=== PATIENT | female | born 1940 | race Caucasian/White ===

== ENCOUNTER → 2018-03-14 | Emergency (ER) | payer OTHER ==
[~2018-03-14] VITALS: Ht 149.9 cm; Wt 59.0 kg
[~2018-03-14] MED LIST: ACID REDUCER150 MG; ASPIR 8181 MG; GLUCOTROL10 MG; ISOSORBIDE DINI30 MG; LIPITOR80 MG; METFORMIN HCL850 MG; PAIN RELIEVER500 M4; PLAVIX75 MG; RESTORIL30 M1; TOPAMAX50 MG; VITAMIN C1000 MG; VITAMIN D250000 UNIT; ZOLOFT100 MG
== END | disposition home or self-care (01) ==
LOC: ER 16:42 → CPU-OBS 16:59
DX: I25.10 Atherosclerotic heart disease of native coronary artery without angina pectoris (principal)

== ENCOUNTER 2018-09-22 17:43 | Inpatient (IN) | payer OTHER ==
[~2018-09-22] VITALS: Ht 160 cm; Wt 77.1 kg
--- NOTE | 2018-09-22 18:16 | NUR ---
SE RECIBE PTE. FREMENINA ALERTA CONCIENTE Y ORIENTADA EN AMBULANCIA PTE. REFIERE HOY AL MEDIO PEDRO LE COMENZO DIFICULTAD RESPIRATORIA Y EN EL HOGAR NUESTRA SENORA DE LA PROVIDENCIA PTE. ESTUVO CON PRESIONES ARTERIALES ELEVADAS AL LLEGAR A AQUI PRESENTO PRESIONES EN 126/56. SUBICA EN CHEST PAIN UNIT SE CONECTA A MONITOR CARDIACO Y SE LE REALIZA EKG. PTE. LLEGA CANALIZADA EN BRAZO RT. CON ANGIO #22 DE AMBULANCIA. BAJANDOLE .9NS DE 500ML. PTE. CON VARIAS FRACTURAS DEBIDO A CAIDA.
--- NOTE | 2018-09-22 19:42 | NUR ---
SE ORIENTA PTE Y FAMILIAR SOBRE TX MEDICO EL CUAL REFIERE ENTENDER.PTE CONECTADA A MONITOR CARDIACO Y OXIMETRIA,PTE CANALIZADA EN BRAZO RT CON # 22 POR AMBULANCIA.SE CANALIZA BAJO MEDIDAS ASPETICAS # 18 PARA ESTUDIO CON CONTRASTE EL CUAL SE NOTIFICA.SE EXTRAEN MUESTRAS BAJO MEDIDAS ASEPTICAS.SE ADMINISTRAN MEDICAMENTOS ABENA ORDEN DE DR APARNA COFFMAN EVALUA PTE AL MOMENTO.SE LE INSERTA SUE BAJO MEDIDAS ASEPTICAS SIN EGRESO AL MOMENTO,SE LE REALIZA CAMBIO DE PANAL EL CUAL PRESENTABA ORINA.PTE HIPOTENSA 60/40.SE NOTIFICA A DR APARNA COFFMAN ORDENA FLUID CHALLENGE 250ML STAT.SE REPITE EKG Y SE MUESTRA.SE SMITH PTE BAJO OBSERVACION POR CAMBIOS.
--- NOTE | 2018-09-22 20:30 | NUR ---
LUEGO DE FLUID CHALLENGE DE 500ML PTE CON PRESION DE 62/47(52) EN MONITOR Y NO AUDIBLE MANUAL,SE OBSERVA PTE SUDOROSA Y SE NOTIFICA A DR BRAUN QUIEN INDICA ADMINISTRAR FLUID CHALLENGE DE 500ML Y REALIZAR CT DE PECHO.PTE SIN EGRESO AL MOMENTO.SE SMITH BAJO OBSERVACION POR CAMBIOS.
== END 2018-10-04 17:36 | disposition home or self-care (01) | DRG 280 ==
LOC: ER 17:43 → MEDI 23:56 → MEDJ 09-26 14:56
PROVIDERS: ADMIT Internal Medicine
PROC: 4A033R1 Measurement of Arterial Saturation, Peripheral, Percutaneous Approach (ICD-10-PCS; principal; 2018-09-22)
PROC: BW28ZZZ Computerized Tomography (CT Scan) of Head (ICD-10-PCS; 2018-09-22)
PROC: B22 Imaging, Heart, Computerized Tomography (CT Scan) (ICD-10-PCS; 2018-09-22)
PROC: BB24ZZZ Computerized Tomography (CT Scan) of Bilateral Lungs (ICD-10-PCS; 2018-09-22)
PROC: B246ZZZ Ultrasonography of Right and Left Heart (ICD-10-PCS; 2018-09-22)
PROC: 3E0F7GC Introduction of Other Therapeutic Substance into Respiratory Tract, Via Natural or Artificial Opening (ICD-10-PCS; 2018-09-22)
PROC: 0BH17EZ Insertion of Endotracheal Airway into Trachea, Via Natural or Artificial Opening (ICD-10-PCS; 2018-09-23)
PROC: 5A1945Z Respiratory Ventilation, 24-96 Consecutive Hours (ICD-10-PCS; 2018-09-23)
PROC: 4A12X4Z Monitoring of Cardiac Electrical Activity, External Approach (ICD-10-PCS; 2018-09-23)
PROC: 8E0ZXY6 Isolation (ICD-10-PCS; 2018-09-26)
DX: I21.09 ST elevation (STEMI) myocardial infarction involving other coronary artery of anterior wall (principal); I26.99 Other pulmonary embolism without acute cor pulmonale; I63.89 Other cerebral infarction; J96.02 Acute respiratory failure with hypercapnia; N39.0 Urinary tract infection, site not specified; C94.80 Other specified leukemias not having achieved remission; I50.20 Unspecified systolic (congestive) heart failure; C91.10 Chronic lymphocytic leukemia of B-cell type not having achieved remission; I25.10 Atherosclerotic heart disease of native coronary artery without angina pectoris; M81.0 Age-related osteoporosis without current pathological fracture; H26.8 Other specified cataract; I11.0 Hypertensive heart disease with heart failure; I48.0 Paroxysmal atrial fibrillation; F43.22 Adjustment disorder with anxiety; Z16.12 Extended spectrum beta lactamase (ESBL) resistance; B96.29 Other Escherichia coli [E. coli] as the cause of diseases classified elsewhere; B95.2 Enterococcus as the cause of diseases classified elsewhere

== ENCOUNTER 2020-03-13 10:13 | Inpatient (IN) | payer OTHER ==
[~2020-03-13] VITALS: Ht 160 cm; Wt 77.1 kg
[2020-03-13] MEDS ORDERED: LIPITOR40 M1 (10:31)
[2020-03-13] MEDS ORDERED: WARFARIN SODIUM3 MG (10:31)
[2020-04-14] MEDS ORDERED: XOPENEX0.63 MG/3 IH (11:54)
[2020-04-14] MEDS ORDERED: INTEGRA PLUS C1 EACH PO (11:55)
[2020-04-14] MEDS ORDERED: SERTRALINE HCL100 MG PO (11:55)
[2020-04-14] MEDS ORDERED: ISOSORBIDE MONO30 MG PO (11:55)
[2020-04-14] MEDS ORDERED: LIPITOR40 MG PO (11:55)
[2020-04-14] MEDS ORDERED: RAMIPRIL5 MG PO (11:55)
[2020-04-14] MEDS ORDERED: FAMOTIDINE20 MG PO (11:56)
[2020-04-14] MEDS ORDERED: INTESTINEX680 M1 PO (11:56)
[2020-04-14] MEDS ORDERED: PRE PROTEIN1 EACH PO (11:56)
[2020-04-14] MEDS ORDERED: PROTONIX40 MG PO (11:56)
[2020-04-14] MEDS ORDERED: VITAMIN B125000 MCG PO (11:57)
[2020-04-14] MEDS ORDERED: FOLIC ACID1 MG PO (11:57)
[2020-04-14] MEDS ORDERED: TOPROL XL25 M1 PO (11:58)
== END 2020-04-15 15:42 | disposition home or self-care (01) | DRG 981 ==
LOC: ER 10:13 → SEC-K 18:31 → SURH 18:31
PROVIDERS: Surgery; ADMIT Internal Medicine; ATTEND Internal Medicine
PROC: 4A033R1 Measurement of Arterial Saturation, Peripheral, Percutaneous Approach (ICD-10-PCS; 2020-03-13)
PROC: BW21ZZZ Computerized Tomography (CT Scan) of Abdomen and Pelvis (ICD-10-PCS; 2020-03-13)
PROC: 4A12X4Z Monitoring of Cardiac Electrical Activity, External Approach (ICD-10-PCS; 2020-03-14)
PROC: B246ZZZ Ultrasonography of Right and Left Heart (ICD-10-PCS; 2020-03-23)
PROC: 30233P1 Transfusion of Nonautologous Frozen Red Cells into Peripheral Vein, Percutaneous Approach (ICD-10-PCS; 2020-03-24)
PROC: 0DBN8ZX Excision of Sigmoid Colon, Via Natural or Artificial Opening Endoscopic, Diagnostic (ICD-10-PCS; 2020-03-26)
PROC: 02HV33Z Insertion of Infusion Device into Superior Vena Cava, Percutaneous Approach (ICD-10-PCS; 2020-03-27)
PROC: 8E0ZXY6 Isolation (ICD-10-PCS; 2020-04-01)
PROC: 0D1M4Z4 Bypass Descending Colon to Cutaneous, Percutaneous Endoscopic Approach (ICD-10-PCS; principal; 2020-04-01 07:00)
PROC: 3E0F7GC Introduction of Other Therapeutic Substance into Respiratory Tract, Via Natural or Artificial Opening (ICD-10-PCS; 2020-04-03)
PROC: 5A09457 Assistance with Respiratory Ventilation, 24-96 Consecutive Hours, Continuous Positive Airway Pressure (ICD-10-PCS; 2020-04-06)
DX: N32.1 Vesicointestinal fistula (principal); J96.90 Respiratory failure, unspecified, unspecified whether with hypoxia or hypercapnia; N39.0 Urinary tract infection, site not specified; J81.1 Chronic pulmonary edema; C91.10 Chronic lymphocytic leukemia of B-cell type not having achieved remission; I50.40 Unspecified combined systolic (congestive) and diastolic (congestive) heart failure; I25.10 Atherosclerotic heart disease of native coronary artery without angina pectoris; I48.0 Paroxysmal atrial fibrillation; B96.89 Other specified bacterial agents as the cause of diseases classified elsewhere; M81.0 Age-related osteoporosis without current pathological fracture; R47.9 Unspecified speech disturbances; F43.22 Adjustment disorder with anxiety; E11.65 Type 2 diabetes mellitus with hyperglycemia; E11.8 Type 2 diabetes mellitus with unspecified complications; Z74.1 Need for assistance with personal care; Z99.89 Dependence on other enabling machines and devices; Z93.3 Colostomy status; Z91.89 Other specified personal risk factors, not elsewhere classified; K57.30 Diverticulosis of large intestine without perforation or abscess without bleeding; Z20.828 Contact with and (suspected) exposure to other viral communicable diseases; L89.152 Pressure ulcer of sacral region, stage 2; L89.312 Pressure ulcer of right buttock, stage 2; D64.9 Anemia, unspecified

== ENCOUNTER 2020-07-17 19:44 | Inpatient (IN) | payer OTHER ==
[~2020-07-17] VITALS: Ht 157.5 cm; Wt 67.6 kg
[~2020-07-17 19:44] MED LIST changes: +FAMOTIDINE20 MG PO; +FOLIC ACID1 MG PO; +INTEGRA PLUS C1 EACH PO; +INTESTINEX680 M1 PO; +ISOSORBIDE MONO30 MG PO; +LIPITOR40 M1; +LIPITOR40 MG PO; +PRE PROTEIN1 EACH PO; +PROTONIX40 MG PO; +RAMIPRIL5 MG PO; +SERTRALINE HCL100 MG PO; +TOPROL XL25 M1 PO; +VITAMIN B125000 MCG PO; +WARFARIN SODIUM3 MG; +XOPENEX0.63 MG/3 IH
--- NOTE | 2020-07-17 19:46 | NUR ---
PACIENTE QUE LLEGA EN COMPANIA DE PERSONAL DE EMERGENCIAS MEDICAS Y FAMILIAR DESDE UN HOGAR DE ENVEJECIENTES. REFIEREN TRAER LA PACIENTE POR INFECCION DE ORINA, BLANCOS ELEVADOS ULCERA SACRAL Y DOLOR EN PIERNA IZQUIERDA
[2020-07-22] MEDS ORDERED: ZOLOFT50 MG PO (13:25)
[2020-07-22] MEDS ORDERED: ZOLOFT100 MG PO (13:26)
[2020-07-22] MEDS ORDERED: DALMANE30 MG PO (13:29)
[2020-07-22] MEDS ORDERED: CLONAZEPAM0.5 M1 PO (13:29)
[2020-07-22] MEDS ORDERED: WELLBUTRIN XL150 M1 PO (13:29)
[2020-07-22] MEDS ORDERED: INTEGRA PLUS C1 EACH PO (13:39)
== END 2020-07-22 15:51 | disposition home or self-care (01) | DRG 690 ==
LOC: ER 19:44 → SEC-K 07-18 00:20 → SURH 07-18 00:20 → MEDJ 07-20 17:07
PROVIDERS: ADMIT Internal Medicine; ATTEND Internal Medicine
PROC: CB2YYZZ Tomographic (Tomo) Nuclear Medicine Imaging of Respiratory System using Other Radionuclide (ICD-10-PCS; 2020-07-17)
PROC: 3E0F7SF Introduction of Other Gas into Respiratory Tract, Via Natural or Artificial Opening (ICD-10-PCS; principal; 2020-07-18)
PROC: 4A12X4Z Monitoring of Cardiac Electrical Activity, External Approach (ICD-10-PCS; 2020-07-18)
DX: N39.0 Urinary tract infection, site not specified (principal); I50.22 Chronic systolic (congestive) heart failure; C91.10 Chronic lymphocytic leukemia of B-cell type not having achieved remission; L89.152 Pressure ulcer of sacral region, stage 2; B95.2 Enterococcus as the cause of diseases classified elsewhere; B96.5 Pseudomonas (aeruginosa) (mallei) (pseudomallei) as the cause of diseases classified elsewhere; B96.89 Other specified bacterial agents as the cause of diseases classified elsewhere; I25.10 Atherosclerotic heart disease of native coronary artery without angina pectoris; M81.0 Age-related osteoporosis without current pathological fracture; I48.0 Paroxysmal atrial fibrillation; E11.65 Type 2 diabetes mellitus with hyperglycemia; F43.22 Adjustment disorder with anxiety; G30.9 Alzheimer's disease, unspecified; Z74.01 Bed confinement status; Z93.3 Colostomy status; Z79.84 Long term (current) use of oral hypoglycemic drugs; Z20.822 Contact with and (suspected) exposure to COVID-19; F02.80 Dementia in other diseases classified elsewhere, unspecified severity, without behavioral disturbance, psychotic disturbance, mood disturbance, and anxiety; I11.0 Hypertensive heart disease with heart failure

== ENCOUNTER 2020-08-17 20:24 | Emergency (ER) | payer OTHER ==
[~2020-08-17] VITALS: Ht 162.6 cm; Wt 68.0 kg
[~2020-08-17 20:24] MED LIST changes: +CLONAZEPAM0.5 M1 PO; +DALMANE30 MG PO; +WELLBUTRIN XL150 M1 PO; +ZOLOFT100 MG PO; +ZOLOFT50 MG PO
== END 2020-08-17 23:51 | disposition home or self-care (01) ==
LOC: ER 20:24
DX: E11.649 Type 2 diabetes mellitus with hypoglycemia without coma (principal); E86.0 Dehydration; E87.8 Other disorders of electrolyte and fluid balance, not elsewhere classified; R53.1 Weakness

== ENCOUNTER 2021-05-24 13:24 | Emergency (ER) | payer OTHER ==
[~2021-05-24] VITALS: Ht 157.5 cm; Wt 77.1 kg
[2021-05-24] MEDS ORDERED: CLARITIN10 M1 PO (21:41)
[2021-05-24] MEDS ORDERED: TUSNEL LIQUID178 ML PO (21:41)
[2021-05-24] MEDS ORDERED: ZITHROMAX500 MG PO (21:41)
== END 2021-05-25 01:04 | disposition home or self-care (01) ==
LOC: ER 13:24
DX: J22 Unspecified acute lower respiratory infection (principal); Z20.822 Contact with and (suspected) exposure to COVID-19

== ENCOUNTER 2021-08-17 13:41 | Inpatient (IN) | payer OTHER ==
[~2021-08-17] VITALS: Ht 157.5 cm; Wt 77.1 kg
[~2021-08-17 13:41] MED LIST changes: +CLARITIN10 M1 PO; +TUSNEL LIQUID178 ML PO; +ZITHROMAX500 MG PO
[2021-08-17] MEDS ORDERED: HEMAX TABLET1 EACH PO (14:27)
[2021-08-17] MEDS ORDERED: LIPITOR40 M1 PO (14:28)
[2021-08-17] MEDS ORDERED: ALTACE5 MG PO (14:28)
[2021-08-17] MEDS ORDERED: GLIPIZIDE XL10 MG PO (14:28)
[2021-08-17] MEDS ORDERED: JANTOVEN3 MG PO (14:44)
[2021-08-17] MEDS ORDERED: BUSPIRONE HCL10 MG PO (14:45)
[2021-08-17] MEDS ORDERED: ISOSORBIDE DINI30 MG PO (14:45)
[2021-08-26] MEDS ORDERED: CLOPIDOGREL BIS75 MG PO (16:58)
[2021-08-26] MEDS ORDERED: MELATONIN5 M2 PO (16:59)
[2021-08-26] MEDS ORDERED: TOPROL XL25 M1 PO (16:59)
[2021-08-26] MEDS ORDERED: ACIDOPHILUS1 EAC3 PO (17:06)
== END 2021-08-26 22:51 | DRG 871 ==
LOC: ER 13:41 → ICU-2 23:25 → ICU 08-18 21:16 → MEDI 08-20 16:20 → ICU 08-20 17:29 → MEDI 08-20 19:18
PROVIDERS: ADMIT Internal Medicine; ATTEND Internal Medicine
PROC: B24BZZZ Ultrasonography of Heart with Aorta (ICD-10-PCS; 2021-08-18)
PROC: 02HV33Z Insertion of Infusion Device into Superior Vena Cava, Percutaneous Approach (ICD-10-PCS; 2021-08-19)
PROC: 30243N1 Transfusion of Nonautologous Red Blood Cells into Central Vein, Percutaneous Approach (ICD-10-PCS; principal; 2021-08-20)
PROC: 4A12X4Z Monitoring of Cardiac Electrical Activity, External Approach (ICD-10-PCS; 2021-08-21)
DX: A41.51 Sepsis due to Escherichia coli [E. coli] (principal); R65.21 Severe sepsis with septic shock; I21.A1 Myocardial infarction type 2; N39.0 Urinary tract infection, site not specified; N17.8 Other acute kidney failure; N32.1 Vesicointestinal fistula; B37.89 Other sites of candidiasis; L89.159 Pressure ulcer of sacral region, unspecified stage; R09.02 Hypoxemia; E86.0 Dehydration; E87.8 Other disorders of electrolyte and fluid balance, not elsewhere classified; D64.9 Anemia, unspecified; I10 Essential (primary) hypertension; Z74.01 Bed confinement status; E78.49 Other hyperlipidemia; I48.0 Paroxysmal atrial fibrillation; Z20.822 Contact with and (suspected) exposure to COVID-19; F43.22 Adjustment disorder with anxiety; Z79.4 Long term (current) use of insulin; D72.828 Other elevated white blood cell count; E11.65 Type 2 diabetes mellitus with hyperglycemia; I25.10 Atherosclerotic heart disease of native coronary artery without angina pectoris; Z93.3 Colostomy status; J44.9 Chronic obstructive pulmonary disease, unspecified

== ENCOUNTER 2022-12-17 10:26 | Inpatient (IN) | payer OTHER ==
[~2022-12-17] VITALS: Ht 154.9 cm; Wt 72.6 kg
[~2022-12-17 10:26] MED LIST changes: +ACIDOPHILUS1 EAC3 PO; +ALTACE5 MG PO; +BUSPIRONE HCL10 MG PO; +CLOPIDOGREL BIS75 MG PO; +GLIPIZIDE XL10 MG PO; +HEMAX TABLET1 EACH PO; +ISOSORBIDE DINI30 MG PO; +JANTOVEN3 MG PO; +LIPITOR40 M1 PO; +MELATONIN5 M2 PO
[2022-12-17] MEDS ORDERED: FOLIC ACID1 MG PO (10:35)
[2022-12-17] MEDS ORDERED: TRAZODONE HCL100 MG PO (10:35)
[2022-12-17] MEDS ORDERED: TRAZODONE HCL50 MG PO (10:36)
[2022-12-17] MEDS ORDERED: CRANBERRY CONC1 EAC1 PO (10:36)
[2022-12-17] MEDS ORDERED: SERTRALINE HCL100 MG PO (10:37)
--- NOTE | 2022-12-17 10:38 | NUR ---
SE RECIBE PTE ALERTA Y ORIENTADA EN PERSONA. PARAMEDICO REFIERE QUE LA ENVIARON DE POR UTI Y ULCERAS SACRALES. SE BETH S/V Y SE UBICA.
--- NOTE | 2022-12-17 10:52 | NUR ---
SE RECIBE PTE FEMENIANA DE 82 YRS ALERTA CONCIENTE Y TRANQUILA , ES EVALUADA POR EL AFSANEH WHEATLEY QUIEN SE OBSERVA CON FOLIE CON ORINA SEDIMENTADA DE COLOR VERDOSA Y DE MAL OLOR. PTE LLEGA EN AMBULANCIA , SE LE PARVEZ S/V LA CUAL SE DOCUEMTA. SE EJECUTA ORDEN POR MS.AYALA ARREDONDO.
--- NOTE | 2022-12-17 15:59 | NUR ---
SE RECIBE PTE FEMENINA ALERTA Y ORIENTADA EN PERSONA EN COMPANIA DE FAMILIAR DEL TURNO ANTERIOR. SE OBSERVA CON BUEN PATRON RESPIRATORIO Y SIN QUEJA DE DOLOR. VENOPUNCION PATENTE, KEATON DE EDEMA Y ERITEMA RECIBIENDO TERAPIA DE IVFS 0.9NSS BAJANDO A 150ML/HR. PTE CON SONDA URINARIA A GRAVEDAD DRENANDO EGRESO DE ORINA COLOR KALYAN CON APROXIMADAMENTE 100ML. PTE EN BERTRAM NIVEL MAS BAJO CON BARANDAS ELEVADAS Y FRENOS COLOCADOS POR SEGURIDAD. PENDIENTE CONSULTA CON YA NOTIFICADA.
[2022-12-28] MEDS ORDERED: [UNRECOGNIZED DRUG - OTHER] IV (11:40)
[2022-12-28] MEDS ORDERED: HEMAX TABLET1 EACH PO (11:42)
[2022-12-28] MEDS ORDERED: TOPROL XL25 M1 PO (11:43)
[2022-12-28] MEDS ORDERED: ALTACE5 MG PO (11:43)
[2022-12-28] MEDS ORDERED: LIPITOR40 M1 PO (11:43)
[2022-12-28] MEDS ORDERED: RESTORIL30 M1 PO (11:44)
[2022-12-28] MEDS ORDERED: TRAZODONE HCL100 MG PO (11:44)
[2022-12-28] MEDS ORDERED: SERTRALINE HCL100 MG PO (11:44)
[2022-12-28] MEDS ORDERED: ACIDOPHILUS1 EAC3 PO (11:45)
[2022-12-28] MEDS ORDERED: HUMALOG100 UNIT/1 SUBCUTANEO (11:45)
[2022-12-28] MEDS ORDERED: MEGESTROL400 MG/11 PO (11:45)
[2022-12-28] MEDS ORDERED: FAMOTIDINE20 MG PO (11:45)
[2022-12-28] MEDS ORDERED: CRANBERRY CONC1 EAC1 PO (11:46)
[2022-12-28] MEDS ORDERED: FOLIC ACID1 MG PO (11:46)
[2022-12-28] MEDS ORDERED: zyvox PO (11:47)
== END 2022-12-28 16:05 | DRG 690 ==
LOC: ER 10:26 → SURH 18:23 → SURG 18:23 → SEC-K 18:23 → SURG 21:07 → SURH 12-21 11:03
PROVIDERS: ADMIT Internal Medicine; ATTEND Internal Medicine
PROC: BW21ZZZ Computerized Tomography (CT Scan) of Abdomen and Pelvis (ICD-10-PCS; 2022-12-17)
PROC: 30233N1 Transfusion of Nonautologous Red Blood Cells into Peripheral Vein, Percutaneous Approach (ICD-10-PCS; 2022-12-19)
PROC: 02HV33Z Insertion of Infusion Device into Superior Vena Cava, Percutaneous Approach (ICD-10-PCS; principal; 2022-12-22)
DX: N39.0 Urinary tract infection, site not specified (principal); Z16.12 Extended spectrum beta lactamase (ESBL) resistance; C95.10 Chronic leukemia of unspecified cell type not having achieved remission; N32.1 Vesicointestinal fistula; I50.20 Unspecified systolic (congestive) heart failure; E86.0 Dehydration; L89.159 Pressure ulcer of sacral region, unspecified stage; L08.9 Local infection of the skin and subcutaneous tissue, unspecified; B96.4 Proteus (mirabilis) (morganii) as the cause of diseases classified elsewhere; B95.2 Enterococcus as the cause of diseases classified elsewhere; B95.61 Methicillin susceptible Staphylococcus aureus infection as the cause of diseases classified elsewhere; G30.9 Alzheimer's disease, unspecified; F02.80 Dementia in other diseases classified elsewhere, unspecified severity, without behavioral disturbance, psychotic disturbance, mood disturbance, and anxiety; E11.9 Type 2 diabetes mellitus without complications; Z79.4 Long term (current) use of insulin; I25.10 Atherosclerotic heart disease of native coronary artery without angina pectoris; I11.9 Hypertensive heart disease without heart failure; Z74.01 Bed confinement status; I11.0 Hypertensive heart disease with heart failure; I48.0 Paroxysmal atrial fibrillation; D63.0 Anemia in neoplastic disease